=== PATIENT | female | born 1945 | race Caucasian/White ===

== ENCOUNTER 2019-08-25 09:11 | Inpatient (IN) ==
[2019-08-25 09:32] LABS: Basophils % 0.4 % (0.0-0.8); Eosinophils # 0.1 10*3/uL (0.0-0.87); Hematocrit 39.2 VOL% (35.7-47.0); Immature Granulocytes % 0.6 %; Immature Granulocytes Absolute 0.03 #; Lymphocytes # 1.6 10*3/uL (1.4-4.0); Lymphocytes % 31.8 % (21.3-54.2); Mean Corpuscular HGB Conc 33.2 GM/DL (32-36); Mean Corpuscular Volume 90.5 FL (87-102); Mean Platelet Volume 9.9 FL (9.6-12.0); Neutrophils % 59.2 % (38.7-73.9); Platelet Count 230 T/CUMM (130-400); Red Blood Count 4.33 MC/CUMM (3.8-5.5); Red Cell Distribution Width 13.2 % (9.3-17.3); White Blood Count 4.9 T/CUMM (4-12)
[2019-08-25] MEDS ORDERED: NITROGLYCERIN SL 0.4 MG TABLET SL PRN (09:33)
[2019-08-25] MEDS ORDERED: ENOXAPARIN 100 MG/ML SYRINGE SUBCUT STA (09:33)
[2019-08-25] MEDS ORDERED: ASPIRIN 325 MG TABLET PO STA (09:33)
[2019-08-25 10:03] LABS: Albumin 3.9 G/DL (3.4-5.0); Bilirubin,Total 0.6 MG/DL (0.2-1.0); Calcium 8.9 MG/DL (8.5-10.1); Osmolality,Calculated 281.8 MOS/KG (273-304)
[2019-08-25] MEDS ORDERED: ZALEPLON 5 MG CAPSULE PO PRN (10:11)
[2019-08-25] MEDS ORDERED: MAGNESIUM SULF RIDER 2 GM in PREMIX 1 EACH IV PRN ×2 (10:11→16:16)
[2019-08-25] MEDS ORDERED: MAGNESIUM SULF RIDER 4 GM in PREMIX 1 EACH IV PRN (10:11)
[2019-08-25] MEDS ORDERED: DEXTROSE 50% 25 GM/50 ML VIAL IV PRN (10:11)
[2019-08-25] MEDS ORDERED: MORPHINE 4 MG/1 ML VIAL IV PRN (10:11)
[2019-08-25] MEDS ORDERED: GLUCAGON 1 MG VIAL IM PRN (10:11)
[2019-08-25] MEDS: INSULIN LISPRO 100 UNIT/ML SUBCUT SCH ×3 (11:51→21:28)
[2019-08-25] MEDS: SODIUM CHLORIDE 0.45% 1,000 ML IV SCH ×2 (14:25→22:12)
[2019-08-25 15:06] LABS: INR 1.1; PT Patient Result 11.8 SECS (9.8-11.9)
[2019-08-25] MEDS ORDERED: TICAGRELOR 90 MG TABLET PO ONE (16:15)
[2019-08-25] MEDS ORDERED: POTASSIUM CHLORIDE RIDER 10 MEQ in PREMIX 1 EACH IV PRN (16:16)
[2019-08-25] MEDS: GABAPENTIN 400 MG CAPSULE PO SCH ×2 (17:51→22:03)
[2019-08-25] MEDS: NITROGLYCERIN 2% OINT 1 INCH/GM PACK TOP SCH ×2 (17:53→19:24)
[2019-08-25] MEDS ORDERED: ATORVASTATIN 40 MG TABLET PO SCH (21:00)
[2019-08-25] MEDS: ATORVASTATIN 80 MG TABLET PO SCH (22:04)
[2019-08-25] MEDS: METOPROLOL TARTRATE 25 MG TABLET PO SCH (22:04)
[2019-08-25] MEDS: TICAGRELOR 90 MG TABLET PO SCH (22:05)
[2019-08-25] MEDS: ENOXAPARIN 80 MG/0.8 ML SYRINGE SUBCUT SCH (22:10)
[2019-08-25] MEDS: ONDANSETRON 4 MG/2 ML VIAL IV PRN (23:26)
[2019-08-26] MEDS: NITROGLYCERIN 2% OINT 1 INCH/GM PACK TOP SCH ×2 (00:19→07:11)
[2019-08-26] MEDS: SODIUM CHLORIDE 0.45% 1,000 ML IV SCH ×2 (04:18→16:07)
[2019-08-26 06:41] LABS: Basophils % 0.4 % (0.0-0.8); Eosinophils # 0.1 10*3/uL (0.0-0.87); Eosinophils % 1.1 % (0.00-10.9); Hematocrit 40.1 VOL% (35.7-47.0); Hemoglobin 13.2 GM/DL (12.0-16.0); Immature Granulocytes % 0.5 %; Immature Granulocytes Absolute 0.03 #; Lymphocytes # 1.4 10*3/uL (1.4-4.0); Mean Corpuscular HGB Conc 32.9 GM/DL (32-36); Mean Corpuscular Volume 91.1 FL (87-102); Monocytes % 9.2 % (1.7-12.7); Neutrophils % 63.8 % (38.7-73.9); Platelet Count 234 T/CUMM (130-400); Red Cell Distribution Width 13.1 % (9.3-17.3); White Blood Count 5.6 T/CUMM (4-12)
[2019-08-26 07:03] LABS: Osmolality,Calculated 275.7 MOS/KG (273-304); Osmolality,Calculated 278.5 MOS/KG (273-304)
[2019-08-26 07:07] LABS: Risk Ratio 4.92; VLDL CHOLESTEROL 66.4 MG/DL
[2019-08-26] MEDS: POTASSIUM CHLORIDE 20 MEQ TABLET PO PRN ×2 (07:19→08:23)
[2019-08-26] MEDS ORDERED: DIAZEPAM 5 MG TABLET PO ONE (08:00)
[2019-08-26] MEDS ORDERED: diphenhydrAMINE CAP 25 MG CAPSULE PO ONE (08:00)
[2019-08-26] MEDS: LOSARTAN 50 MG TABLET PO SCH (08:23)
[2019-08-26] MEDS: METOPROLOL TARTRATE 25 MG TABLET PO SCH ×2 (08:23→21:20)
[2019-08-26] MEDS ORDERED: LIDOCAINE 1% 20 ML VIAL ONE (08:23)
[2019-08-26] MEDS ORDERED: HEPARIN/NACL 0.9% 2 UNITS/ML 1,000 ML IV ONE (08:23)
[2019-08-26] MEDS ORDERED: MIDAZOLAM 2 MG/2 ML VIAL ONE (08:42)
[2019-08-26] MEDS ORDERED: NITROGLYCERIN DRIP 50 MG/250 ML BOTTLE IV ONE (08:42)
[2019-08-26] MEDS ORDERED: fentaNYL 100 MCG/2 ML VIAL ONE (08:42)
[2019-08-26] MEDS ORDERED: VERAPAMIL 5 MG/2 ML VIAL ONE (08:42)
[2019-08-26] MEDS ORDERED: ASPIRIN 325 MG TABLET ONE (08:47)
[2019-08-26] MEDS ORDERED: ENOXAPARIN 60 MG/0.6 ML SYRINGE ONE (08:57)
[2019-08-26] MEDS ORDERED: ASPIRIN 325 MG TABLET PO SCH (09:00)
[2019-08-26] MEDS ORDERED: CHLORTHALIDONE 25 MG TABLET PO SCH (09:00)
[2019-08-26] MEDS ORDERED: ATORVASTATIN 20 MG TABLET PO SCH (09:00)
[2019-08-26] MEDS: INSULIN LISPRO 100 UNIT/ML SUBCUT SCH ×4 (09:55→21:17)
[2019-08-26] MEDS: ENOXAPARIN 80 MG/0.8 ML SYRINGE SUBCUT SCH (09:57)
[2019-08-26] MEDS: DOCUSATE SODIUM 100 MG CAPSULE PO SCH (10:00)
[2019-08-26] MEDS: ASPIRIN EC 81 MG TABLET PO SCH (10:00)
[2019-08-26] MEDS: GABAPENTIN 400 MG CAPSULE PO SCH ×3 (10:01→21:20)
[2019-08-26] MEDS: TICAGRELOR 90 MG TABLET PO SCH (13:23)
[2019-08-26] MEDS: ATORVASTATIN 80 MG TABLET PO SCH (21:20)
[2019-08-27 03:44] LABS: Basophils % 0.4 % (0.0-0.8); Eosinophils # 0.1 10*3/uL (0.0-0.87); Eosinophils % 2.8 % (0.00-10.9); Hematocrit 36.6 VOL% (35.7-47.0); Hemoglobin 11.9 GM/DL (12.0-16.0); Immature Granulocytes % 0.4 %; Immature Granulocytes Absolute 0.02 #; Lymphocytes # 1.8 10*3/uL (1.4-4.0); Lymphocytes % 34.8 % (21.3-54.2); Mean Corpuscular HGB Conc 32.5 GM/DL (32-36); Mean Corpuscular Volume 92.7 FL (87-102); Mean Platelet Volume 10.4 FL (9.6-12.0); Monocytes % 9.1 % (1.7-12.7); Neutrophils % 52.5 % (38.7-73.9); Platelet Count 220 T/CUMM (130-400); Red Blood Count 3.95 MC/CUMM (3.8-5.5); Red Cell Distribution Width 13.4 % (9.3-17.3); White Blood Count 5.1 T/CUMM (4-12)
[2019-08-27 04:16] LABS: Calcium 8.2 MG/DL (8.5-10.1); Osmolality,Calculated 279.4 MOS/KG (273-304)
[2019-08-27] MEDS: POTASSIUM CHLORIDE 20 MEQ TABLET PO PRN ×2 (05:25→08:36)
[2019-08-27] MEDS: INSULIN LISPRO 100 UNIT/ML SUBCUT SCH ×4 (08:09→22:01)
[2019-08-27] MEDS: METOPROLOL TARTRATE 25 MG TABLET PO SCH ×2 (08:35→21:57)
[2019-08-27] MEDS: LOSARTAN 50 MG TABLET PO SCH (08:35)
[2019-08-27] MEDS: GABAPENTIN 400 MG CAPSULE PO SCH ×3 (08:35→21:57)
[2019-08-27] MEDS: DOCUSATE SODIUM 100 MG CAPSULE PO SCH (08:35)
[2019-08-27] MEDS: ISOSORBIDE MONONITRATE 30 MG TABLET PO SCH (08:35)
[2019-08-27] MEDS: ASPIRIN EC 81 MG TABLET PO SCH (08:35)
[2019-08-27] MEDS: ENOXAPARIN 80 MG/0.8 ML SYRINGE SUBCUT SCH ×2 (08:36→22:00)
[2019-08-27] MEDS ORDERED: POTASSIUM CHLORIDE 20 MEQ TABLET PO ONE (09:00)
[2019-08-27] MEDS: MAGNESIUM OXIDE 400 MG TABLET PO SCH ×2 (09:43→21:57)
[2019-08-27] MEDS: ATORVASTATIN 80 MG TABLET PO SCH (21:57)
[2019-08-28] MEDS: ONDANSETRON 4 MG/2 ML VIAL IV PRN (01:52)
[2019-08-28 05:44] LABS: Basophils % 0.4 % (0.0-0.8); Eosinophils # 0.1 10*3/uL (0.0-0.87); Eosinophils % 1.9 % (0.00-10.9); Hematocrit 36.3 VOL% (35.7-47.0); Immature Granulocytes % 0.6 %; Immature Granulocytes Absolute 0.04 #; Lymphocytes # 1.9 10*3/uL (1.4-4.0); Lymphocytes % 28.3 % (21.3-54.2); Mean Corpuscular HGB Conc 33.1 GM/DL (32-36); Mean Corpuscular Volume 91.4 FL (87-102); Mean Platelet Volume 10.7 FL (9.6-12.0); Monocytes % 9.5 % (1.7-12.7); Neutrophils % 59.3 % (38.7-73.9); Platelet Count 204 T/CUMM (130-400); Red Blood Count 3.97 MC/CUMM (3.8-5.5); Red Cell Distribution Width 13.2 % (9.3-17.3); White Blood Count 6.8 T/CUMM (4-12)
[2019-08-28 06:01] LABS: Calcium 8.6 MG/DL (8.5-10.1); Osmolality,Calculated 284.3 MOS/KG (273-304)
[2019-08-28] MEDS ORDERED: ACETAMINOPHEN 500 MG TABLET PO PRN (06:17)
[2019-08-28] MEDS: INSULIN LISPRO 100 UNIT/ML SUBCUT SCH ×4 (08:43→21:36)
[2019-08-28] MEDS: MAGNESIUM OXIDE 400 MG TABLET PO SCH ×2 (10:05→21:34)
[2019-08-28] MEDS: GABAPENTIN 400 MG CAPSULE PO SCH ×3 (10:06→21:35)
[2019-08-28] MEDS: ISOSORBIDE MONONITRATE 30 MG TABLET PO SCH (10:06)
[2019-08-28] MEDS: METOPROLOL TARTRATE 25 MG TABLET PO SCH ×2 (10:06→21:34)
[2019-08-28] MEDS: DOCUSATE SODIUM 100 MG CAPSULE PO SCH (10:06)
[2019-08-28] MEDS: LOSARTAN 50 MG TABLET PO SCH (10:06)
[2019-08-28] MEDS: ASPIRIN EC 81 MG TABLET PO SCH (10:07)
[2019-08-28] MEDS ORDERED: GLUCAGON 1 MG VIAL IM PRN (13:29)
[2019-08-28] MEDS ORDERED: DEXTROSE 10% 250 ML BAG IV PRN (13:29)
[2019-08-28] MEDS: ATORVASTATIN 80 MG TABLET PO SCH (21:34)
[2019-08-29 03:05] LABS: Basophils % 0.5 % (0.0-0.8); Eosinophils # 0.1 10*3/uL (0.0-0.87); Eosinophils % 1.9 % (0.00-10.9); Hematocrit 34.6 VOL% (35.7-47.0); Hemoglobin 11.6 GM/DL (12.0-16.0); Immature Granulocytes % 0.6 %; Immature Granulocytes Absolute 0.04 #; Lymphocytes # 2.1 10*3/uL (1.4-4.0); Lymphocytes % 33.8 % (21.3-54.2); Mean Corpuscular HGB Conc 33.5 GM/DL (32-36); Mean Corpuscular Volume 90.1 FL (87-102); Mean Platelet Volume 10.4 FL (9.6-12.0); Monocytes % 9.2 % (1.7-12.7); Platelet Count 205 T/CUMM (130-400); Red Blood Count 3.84 MC/CUMM (3.8-5.5); Red Cell Distribution Width 13.4 % (9.3-17.3); White Blood Count 6.3 T/CUMM (4-12)
[2019-08-29 03:22] LABS: Albumin 3.2 G/DL (3.4-5.0); Bilirubin,Total 0.8 MG/DL (0.2-1.0); Calcium 8.6 MG/DL (8.5-10.1); Osmolality,Calculated 274.8 MOS/KG (273-304); Total Protein 6.3 G/DL (6.4-8.3)
[2019-08-29] MEDS: MAGNESIUM OXIDE 400 MG TABLET PO SCH ×2 (09:29→21:41)
[2019-08-29] MEDS: POTASSIUM CHLORIDE 20 MEQ TABLET PO PRN ×2 (09:29→14:16)
[2019-08-29] MEDS: DOCUSATE SODIUM 100 MG CAPSULE PO SCH (09:30)
[2019-08-29] MEDS: ISOSORBIDE MONONITRATE 30 MG TABLET PO SCH (09:30)
[2019-08-29] MEDS: CHLORHEXIDINE 0.12% ORAL RINSE 60 ML BOTTLE SWISH/SPIT SCH ×2 (09:30→21:42)
[2019-08-29] MEDS: GABAPENTIN 400 MG CAPSULE PO SCH ×3 (09:30→21:41)
[2019-08-29] MEDS: METOPROLOL TARTRATE 25 MG TABLET PO SCH ×2 (09:30→21:41)
[2019-08-29] MEDS: LOSARTAN 50 MG TABLET PO SCH (09:30)
[2019-08-29] MEDS: ASPIRIN EC 81 MG TABLET PO SCH (09:30)
[2019-08-29] MEDS: INSULIN LISPRO 100 UNIT/ML SUBCUT SCH ×4 (10:17→21:41)
[2019-08-29 12:24] LABS: ABG Base Excess 3.4 MMOL/L (-2.5-2.5); ABG HCO3 27.4 MMOL/L (20-26); ABG Oxygen Saturation 96.2 % (95-100); ABG PCO2 41.2 MM HG (35-48); ABG PH 7.438 (7.35-7.45); ABG PO2 80.3 MM HG (80-95); ABG TCO2 24.4 MMOL/L (23-27)
[2019-08-29] MEDS: CHLORHEXIDINE 4% SOLN 118 ML BOTTLE TOP SCH ×2 (14:16→21:41)
[2019-08-29] MEDS: ATORVASTATIN 80 MG TABLET PO SCH (21:41)
[2019-08-30] MEDS: CHLORHEXIDINE 4% SOLN 118 ML BOTTLE TOP SCH ×2 (04:05→10:20)
[2019-08-30] MEDS ORDERED: PAPAVERINE 60 MG/2 ML VIAL ONE (04:19)
[2019-08-30] MEDS ORDERED: VANCOMYCIN 500 MG VIAL ONE (04:20)
[2019-08-30] MEDS ORDERED: VANCOMYCIN 1,000 MG VIAL ONE (04:20)
[2019-08-30] MEDS ORDERED: CEFUROXIME INJ 1,500 MG in SYRINGE 1 EACH IV ONE (05:00)
[2019-08-30] MEDS ORDERED: SODIUM CHLORIDE 0.9% 1,000 ML IV SCH (05:00)
[2019-08-30] MEDS ORDERED: DIAZEPAM 5 MG TABLET PO ONE (05:00)
[2019-08-30] MEDS ORDERED: FAMOTIDINE 20 MG TABLET PO ONE (05:00)
[2019-08-30] MEDS ORDERED: VECURONIUM 10 MG VIAL IV ONE (05:53)
[2019-08-30] MEDS ORDERED: MIDAZOLAM 10 MG/2 ML VIAL ONE (05:53)
[2019-08-30] MEDS ORDERED: CALCIUM CHLORIDE 1,000 MG/10 ML VIAL IV ONE (05:53)
[2019-08-30] MEDS ORDERED: SUFentanil 250 MCG/5 ML AMP ONE (05:53)
[2019-08-30] MEDS ORDERED: MINERAL OIL/PETROLATUM OPH OINT 3.5 GM TUBE ONE (05:53)
[2019-08-30] MEDS ORDERED: LIDOCAINE 2% 5 ML VIAL ONE ×2 (05:53→10:27)
[2019-08-30] MEDS ORDERED: AMINOCAPROIC ACID 5,000 MG/20 ML VIAL ONE (05:54)
[2019-08-30] MEDS ORDERED: POTASSIUM CHLORIDE RIDER 100 ML IV ONE (07:12)
[2019-08-30 07:41] LABS: ABG Base Excess 0.8 MMOL/L (-2.5-2.5); ABG HCO3 25.2 MMOL/L (20-26); ABG Oxygen Saturation 99.8 % (95-100); ABG PCO2 37.5 MM HG (35-48); ABG TCO2 22.2 MMOL/L (23-27); Glucose Heart Surgery 154 MG/DL (74-106); Hematocrit Heart Surgery 34.8 PERCENT (37-47); Hemoglobin Heart Surgery 11.3 G/DL (12.0-16.0); Ionized Calcium Arterial 1.13 MMOL/L (1.21-1.46); PCO2 Patient Temp Arterial 37.5 MMHG; Patient Temperature 37 CELCIUS; Potassium Heart/CVR 3.7 MMOL/L (3.5-5.1); Sodium Heart/CVR 140 MMOL/L (135-145)
[2019-08-30] MEDS ORDERED: diphenhydrAMINE 50 MG/1 ML VIAL ONE (08:59)
[2019-08-30] MEDS ORDERED: FAMOTIDINE 20 MG/2 ML VIAL IV ONE (08:59)
[2019-08-30 09:03] LABS: Hematocrit Heart Surgery 22.4 PERCENT (37-47); Hemoglobin Heart Surgery 7.2 G/DL (12.0-16.0); PCO2 Patient Temp Venous 30.8 MM HG; PH Patient Temp Venous 7.511; PO2 Patient Temp Venous 42.1 MM HG; Potassium Heart/CVR 4.4 MMOL/L (3.5-5.1); VBG HCO3 26.1 MEQ/L (24-28); VBG Oxygen Saturation 88.8 %; VBG PCO2 35.6 MMHG (41-51); VBG PH 7.466; VBG PO2 51.6 MMHG (17-40)
[2019-08-30 09:32] LABS: Hematocrit Heart Surgery 25.6 PERCENT (37-47); Hemoglobin Heart Surgery 8.2 G/DL (12.0-16.0); PCO2 Patient Temp Venous 34.8 MM HG; PH Patient Temp Venous 7.477; PO2 Patient Temp Venous 39.1 MM HG; Potassium Heart/CVR 4.4 MMOL/L (3.5-5.1); VBG Base Excess 2.5 MEQ/L (0-4); VBG HCO3 26.4 MEQ/L (24-28); VBG Oxygen Saturation 83.6 %; VBG PCO2 40.2 MMHG (41-51); VBG PH 7.433; VBG PO2 48.1 MMHG (17-40)
[2019-08-30 10:05] LABS: Hematocrit Heart Surgery 27.4 PERCENT (37-47); Hemoglobin Heart Surgery 8.8 G/DL (12.0-16.0); PCO2 Patient Temp Venous 39.4 MM HG; PH Patient Temp Venous 7.451; PO2 Patient Temp Venous 43.8 MM HG; Potassium Heart/CVR 4.2 MMOL/L (3.5-5.1); VBG Base Excess 3.3 MEQ/L (0-4); VBG HCO3 27.1 MEQ/L (24-28); VBG Oxygen Saturation 80.5 %; VBG PCO2 39.4 MMHG (41-51); VBG PH 7.451; VBG PO2 43.8 MMHG (17-40)
[2019-08-30] MEDS ORDERED: NITROPRUSSIDE 50 MG/2 ML VIAL ONE (10:12)
[2019-08-30] MEDS: ASPIRIN EC 81 MG TABLET PO SCH (10:19)
[2019-08-30] MEDS: INSULIN LISPRO 100 UNIT/ML SUBCUT SCH (10:19)
[2019-08-30] MEDS: DOCUSATE SODIUM 100 MG CAPSULE PO SCH (10:19)
[2019-08-30] MEDS: LOSARTAN 50 MG TABLET PO SCH (10:20)
[2019-08-30] MEDS: METOPROLOL TARTRATE 25 MG TABLET PO SCH (10:20)
[2019-08-30] MEDS: ISOSORBIDE MONONITRATE 30 MG TABLET PO SCH (10:20)
[2019-08-30] MEDS: MAGNESIUM OXIDE 400 MG TABLET PO SCH (10:21)
[2019-08-30] MEDS: GABAPENTIN 400 MG CAPSULE PO SCH (10:21)
[2019-08-30] MEDS: CHLORHEXIDINE 0.12% ORAL RINSE 60 ML BOTTLE SWISH/SPIT SCH ×2 (10:21→21:45)
[2019-08-30] MEDS ORDERED: MANNITOL 100 GM/500 ML BAG IV ONE (10:27)
[2019-08-30] MEDS ORDERED: ALBUMIN 25% 25 GM/100 ML VIAL IV ONE (10:28)
[2019-08-30] MEDS ORDERED: SODIUM BICARBONATE 50 MEQ/50 ML VIAL IV ONE (10:28)
[2019-08-30] MEDS ORDERED: MAGNESIUM SULFATE 5 GM/10 ML VIAL IV ONE (10:28)
[2019-08-30] MEDS ORDERED: methylPREDNISolone SOD SUC 1,000 MG/8 ML VIAL ONE (10:28)
[2019-08-30] MEDS ORDERED: PROTAMINE SULFATE 250 MG/25 ML VIAL IV ONE (10:28)
[2019-08-30] MEDS ORDERED: DEXTROSE 5% KCL 20 MEQ 20 MEQ/1,000 ML BAG IV ONE (10:28)
[2019-08-30] MEDS ORDERED: HEPARIN 10,000 UNIT/10 ML VIAL ONE (10:28)
[2019-08-30] MEDS ORDERED: FUROSEMIDE 20 MG/2 ML VIAL ONE (10:28)
[2019-08-30 10:33] LABS: ABG Base Excess 2.4 MMOL/L (-2.5-2.5); ABG HCO3 26.6 MMOL/L (20-26); ABG PCO2 34.4 MM HG (35-48); ABG PH 7.483 (7.35-7.45); Glucose Heart Surgery 279 MG/DL (74-106); Hematocrit Heart Surgery 24.6 PERCENT (37-47); Hemoglobin Heart Surgery 7.9 G/DL (12.0-16.0); Ionized Calcium Arterial 1.19 MMOL/L (1.21-1.46); PCO2 Patient Temp Arterial 34.4 MMHG; PH Patient Temp Arterial 7.483; Patient Temperature 37 CELCIUS; Potassium Heart/CVR 3.3 MMOL/L (3.5-5.1); Sodium Heart/CVR 137 MMOL/L (135-145)
[2019-08-30] MEDS ORDERED: HEPARIN/NACL 0.9% 2 UNITS/ML 500 ML IV ONE (11:06)
[2019-08-30] MEDS ORDERED: PHENYLEPHRINE DRIP 20 MG/250 ML PREMIX IV ONE (11:06)
[2019-08-30] MEDS ORDERED: SEVOFLURANE 1 UNIT/15 MINUTE INH ONE (11:06)
[2019-08-30] MEDS ORDERED: LACTATED RINGERS 1,000 ML IV ONE (11:07)
[2019-08-30] MEDS ORDERED: SODIUM CHLORIDE 0.9% 250 ML IV ONE (11:07)
[2019-08-30] MEDS ORDERED: NITROGLYCERIN DRIP 50 MG/250 ML BOTTLE IV ONE (11:07)
[2019-08-30] MEDS ORDERED: SODIUM CHLORIDE 0.9% 100 ML IV ONE (11:07)
[2019-08-30] MEDS ORDERED: SODIUM CHLORIDE 0.9% 1,000 ML IV ONE (11:07)
[2019-08-30] MEDS ORDERED: CHLORHEXIDINE 4% SOLN 118 ML BOTTLE TOP PRN (11:17)
[2019-08-30] MEDS ORDERED: NITROPRUSSIDE 100 MG in DEXTROSE 5% 250 ML IV PRN (11:17)
[2019-08-30] MEDS ORDERED: CALCIUM CHLORIDE 1,000 MG/10 ML SYRINGE IV PRN (11:17)
[2019-08-30] MEDS ORDERED: ONDANSETRON 4 MG/2 ML VIAL IV PRN (11:17)
[2019-08-30] MEDS ORDERED: ACETAMINOPHEN 650 MG SUPP RECTAL PRN (11:17)
[2019-08-30] MEDS ORDERED: INSULIN REGULAR 100 UNIT/ML IV ONE (11:17)
[2019-08-30] MEDS ORDERED: MORPHINE 10 MG/1 ML VIAL IV PRN (11:17)
[2019-08-30] MEDS ORDERED: PHENYLEPHRINE DRIP 40 MG/250 ML PREMIX IV PRN (11:17)
[2019-08-30] MEDS ORDERED: POTASSIUM CHLORIDE RIDER 10 MEQ in PREMIX 1 EACH IV PRN (11:17)
[2019-08-30] MEDS ORDERED: LACTATED RINGERS 250 ML IV PRN (11:17)
[2019-08-30] MEDS ORDERED: MIDAZOLAM 2 MG/2 ML VIAL IV PRN (11:17)
[2019-08-30] MEDS ORDERED: MAGNESIUM SULF RIDER 2 GM in PREMIX 1 EACH IV PRN (11:17)
[2019-08-30] MEDS ORDERED: SODIUM CHLORIDE 0.45% 1,000 ML IV SCH ×2 (11:17)
[2019-08-30] MEDS ORDERED: VECURONIUM 10 MG VIAL IV PRN ×2 (11:17)
[2019-08-30] MEDS ORDERED: MAGNESIUM SULF RIDER 4 GM in PREMIX 1 EACH IV PRN (11:17)
[2019-08-30] MEDS ORDERED: INSULIN REGULAR 100 UNIT/ML IV PRN (11:17)
[2019-08-30] MEDS ORDERED: ALBUMIN 5% 12.5 GM in PREMIX 1 EACH IV PRN (11:17)
[2019-08-30] MEDS ORDERED: DEXTROSE 10% 250 ML BAG IV PRN ×2 (11:17)
[2019-08-30] MEDS ORDERED: MIDAZOLAM 10 MG/2 ML VIAL IV PRN (11:17)
[2019-08-30 11:20] LABS: ABG Base Excess 3.9 MMOL/L (-2.5-2.5); ABG HCO3 27.9 MMOL/L (20-26); ABG Oxygen Saturation 99.6 % (95-100); ABG PCO2 33.7 MM HG (35-48); ABG PH 7.509 (7.35-7.45); ABG TCO2 24.8 MMOL/L (23-27); Glucose Heart Surgery 263 MG/DL (74-106); Hemoglobin Heart Surgery 8.4 G/DL (12.0-16.0); Potassium Heart/CVR 3.4 MMOL/L (3.5-5.1)
[2019-08-30 11:27] LABS: Basophils % 0.3 % (0.0-0.8); Eosinophils # 0.1 10*3/uL (0.0-0.87); Eosinophils % 0.8 % (0.00-10.9); Hematocrit 24.7 VOL% (35.7-47.0); Hemoglobin 8.3 GM/DL (12.0-16.0); Immature Granulocytes % 0.7 %; Immature Granulocytes Absolute 0.04 #; Lymphocytes % 15.7 % (21.3-54.2); Mean Corpuscular HGB Conc 33.6 GM/DL (32-36); Mean Corpuscular Volume 90.1 FL (87-102); Mean Platelet Volume 10.2 FL (9.6-12.0); Monocytes % 4.6 % (1.7-12.7); Neutrophils % 77.9 % (38.7-73.9); Platelet Count 216 T/CUMM (130-400); Red Blood Count 2.74 MC/CUMM (3.8-5.5); Red Cell Distribution Width 13.2 % (9.3-17.3); White Blood Count 6.1 T/CUMM (4-12)
[2019-08-30] MEDS ORDERED: PROTAMINE SULFATE 50 MG/5 ML VIAL IV ONE (11:30)
[2019-08-30 11:38] LABS: INR 1.2; PT Patient Result 12.7 SECS (9.8-11.9); Partial Thromboplastin Time 26.7 SECS (23.9-33.8)
[2019-08-30] MEDS: POTASSIUM CHLORIDE RIDER 20 MEQ in PREMIX 1 EACH IV PRN ×9 (11:48→23:30)
[2019-08-30 11:53] LABS: Albumin 3.6 G/DL (3.4-5.0); Bilirubin,Total 1.2 MG/DL (0.2-1.0); Calcium 8.8 MG/DL (8.5-10.1); Osmolality,Calculated 285.5 MOS/KG (273-304); Total Protein 6.1 G/DL (6.4-8.3)
[2019-08-30 11:56] LABS: CKMB % 4.9 %
[2019-08-30 11:58] LABS: Troponin I 2.53 NG/ML (0.00-0.045)
[2019-08-30 12:23] LABS: ABG Base Excess 3.9 MMOL/L (-2.5-2.5); ABG HCO3 27.9 MMOL/L (20-26); ABG Oxygen Saturation 98.9 % (95-100); ABG PH 7.526 (7.35-7.45); ABG TCO2 24.2 MMOL/L (23-27); Glucose Heart Surgery 250 MG/DL (74-106); Hematocrit Heart Surgery 28.2 PERCENT (37-47); Hemoglobin Heart Surgery 9.1 G/DL (12.0-16.0); Potassium Heart/CVR 3.3 MMOL/L (3.5-5.1)
[2019-08-30] MEDS: INSULIN REGULAR DRIP 100 ML IV SCH ×2 (13:07→22:03)
[2019-08-30 14:12] LABS: ABG Base Excess 0.3 MMOL/L (-2.5-2.5); ABG HCO3 23.5 MMOL/L (20-26); ABG Oxygen Saturation 97.4 % (95-100); ABG PCO2 33.2 MM HG (35-48); ABG PH 7.468 (7.35-7.45); ABG PO2 109.5 MM HG (80-95); ABG TCO2 24.5 MMOL/L (23-27); Glucose Heart Surgery 235 MG/DL (74-106); Hemoglobin Heart Surgery 11.5 G/DL (12.0-16.0); Potassium Heart/CVR 3.2 MMOL/L (3.5-5.1)
[2019-08-30 16:06] LABS: ABG Base Excess -3.6 MMOL/L (-2.5-2.5); ABG HCO3 21.4 MMOL/L (20-26); ABG Oxygen Saturation 98.8 % (95-100); ABG PCO2 37.1 MM HG (35-48); ABG PH 7.366 (7.35-7.45); ABG TCO2 19.3 MMOL/L (23-27); Glucose Heart Surgery 201 MG/DL (74-106); Hemoglobin Heart Surgery 10.4 G/DL (12.0-16.0); Potassium Heart/CVR 3.5 MMOL/L (3.5-5.1)
[2019-08-30] MEDS: MORPHINE 4 MG/1 ML VIAL IV PRN ×2 (16:10→22:40)
[2019-08-30] MEDS: KETOROLAC 15 MG/1 ML VIAL IV SCH ×2 (17:34→23:32)
[2019-08-30 18:14] LABS: ABG Base Excess -4.7 MMOL/L (-2.5-2.5); ABG HCO3 20.5 MMOL/L (20-26); ABG Oxygen Saturation 98.9 % (95-100); ABG PCO2 35.4 MM HG (35-48); ABG PH 7.363 (7.35-7.45); ABG TCO2 18.3 MMOL/L (23-27); Glucose Heart Surgery 191 MG/DL (74-106); Hematocrit Heart Surgery 31.4 PERCENT (37-47); Hemoglobin Heart Surgery 10.2 G/DL (12.0-16.0); Potassium Heart/CVR 3.9 MMOL/L (3.5-5.1)
[2019-08-30] MEDS: CEFUROXIME INJ 1,500 MG in SYRINGE 1 EACH IV SCH (18:32)
[2019-08-30 19:40] LABS: ABG Base Excess -1.9 MMOL/L (-2.5-2.5); ABG HCO3 22.8 MMOL/L (20-26); ABG Oxygen Saturation 98.8 % (95-100); ABG PCO2 33.7 MM HG (35-48); ABG PH 7.422 (7.35-7.45); ABG TCO2 19.8 MMOL/L (23-27); Glucose Heart Surgery 181 MG/DL (74-106); Hematocrit Heart Surgery 32.1 PERCENT (37-47); Hemoglobin Heart Surgery 10.4 G/DL (12.0-16.0); Potassium Heart/CVR 4.4 MMOL/L (3.5-5.1)
[2019-08-30 20:02] LABS: CKMB % 7.4 %
[2019-08-30 20:05] LABS: Troponin I 6.41 NG/ML (0.00-0.045)
[2019-08-30 20:24] LABS: ABG Base Excess -1.3 MMOL/L (-2.5-2.5); ABG HCO3 23.4 MMOL/L (20-26); ABG Oxygen Saturation 98.9 % (95-100); ABG PCO2 32.9 MM HG (35-48); ABG PH 7.439 (7.35-7.45); ABG TCO2 20.1 MMOL/L (23-27); Glucose Heart Surgery 166 MG/DL (74-106); Hematocrit Heart Surgery 32.4 PERCENT (37-47); Hemoglobin Heart Surgery 10.5 G/DL (12.0-16.0)
[2019-08-30 21:28] LABS: ABG Base Excess -0.7 MMOL/L (-2.5-2.5); ABG HCO3 23.9 MMOL/L (20-26); ABG PCO2 31.8 MM HG (35-48); ABG PH 7.459 (7.35-7.45); ABG TCO2 20.2 MMOL/L (23-27); Glucose Heart Surgery 152 MG/DL (74-106); Hematocrit Heart Surgery 32.5 PERCENT (37-47); Hemoglobin Heart Surgery 10.5 G/DL (12.0-16.0); Potassium Heart/CVR 4.5 MMOL/L (3.5-5.1)
[2019-08-30] MEDS ORDERED: FUROSEMIDE 40 MG/4 ML VIAL IV ONE (21:46)
[2019-08-30 23:21] LABS: ABG Base Excess 2.4 MMOL/L (-2.5-2.5); ABG HCO3 26.5 MMOL/L (20-26); ABG PCO2 37.7 MM HG (35-48); ABG PH 7.451 (7.35-7.45); ABG PO2 92.8 MM HG (80-95); ABG TCO2 23.6 MMOL/L (23-27); Glucose Heart Surgery 127 MG/DL (74-106); Hematocrit Heart Surgery 33.5 PERCENT (37-47); Hemoglobin Heart Surgery 10.8 G/DL (12.0-16.0); Potassium Heart/CVR 3.9 MMOL/L (3.5-5.1)
[2019-08-31] MEDS: POTASSIUM CHLORIDE RIDER 20 MEQ in PREMIX 1 EACH IV PRN ×2 (00:29→05:40)
[2019-08-31 04:40] LABS: ABG HCO3 25.7 MMOL/L (20-26); ABG Oxygen Saturation 97.5 % (95-100); ABG PCO2 36.7 MM HG (35-48); ABG PH 7.463 (7.35-7.45); ABG PO2 103.6 MM HG (80-95); ABG TCO2 26.8 MMOL/L (23-27); Glucose Heart Surgery 127 MG/DL (74-106); Potassium Heart/CVR 4.4 MMOL/L (3.5-5.1)
[2019-08-31 04:45] LABS: Basophils % 0.1 % (0.0-0.8); Hematocrit 30.2 VOL% (35.7-47.0); Hemoglobin 10.3 GM/DL (12.0-16.0); Immature Granulocytes % 0.5 %; Immature Granulocytes Absolute 0.06 #; Lymphocytes # 0.6 10*3/uL (1.4-4.0); Lymphocytes % 5.2 % (21.3-54.2); Mean Corpuscular HGB Conc 34.1 GM/DL (32-36); Mean Corpuscular Volume 89.9 FL (87-102); Mean Platelet Volume 10.8 FL (9.6-12.0); Monocytes % 5.2 % (1.7-12.7); Platelet Count 206 T/CUMM (130-400); Red Blood Count 3.36 MC/CUMM (3.8-5.5); Red Cell Distribution Width 13.6 % (9.3-17.3); White Blood Count 12.2 T/CUMM (4-12)
[2019-08-31 05:13] LABS: Albumin 3.6 G/DL (3.4-5.0); Bilirubin,Direct 0.15 MG/DL (0.0-0.20); Bilirubin,Total 0.5 MG/DL (0.2-1.0); Calcium 8.7 MG/DL (8.5-10.1); Osmolality,Calculated 276.8 MOS/KG (273-304); Total Protein 6.6 G/DL (6.4-8.3)
[2019-08-31 05:39] LABS: CKMB % 8.8 %
[2019-08-31 05:41] LABS: Troponin I 23.6 NG/ML (0.00-0.045)
[2019-08-31] MEDS: KETOROLAC 15 MG/1 ML VIAL IV SCH (05:42)
[2019-08-31] MEDS: CEFUROXIME INJ 1,500 MG in SYRINGE 1 EACH IV SCH ×2 (05:58→17:58)
[2019-08-31] MEDS ORDERED: FUROSEMIDE 40 MG/4 ML VIAL IV ONE (06:51)
[2019-08-31] MEDS ORDERED: INSULIN REGULAR 100 UNIT/ML SUBCUT SCH ×2 (08:00→10:00)
[2019-08-31] MEDS: MORPHINE 4 MG/1 ML VIAL IV PRN (08:24)
[2019-08-31] MEDS: ASPIRIN EC 325 MG TABLET PO SCH (08:40)
[2019-08-31] MEDS: CHLORHEXIDINE 0.12% ORAL RINSE 60 ML BOTTLE SWISH/SPIT SCH ×2 (08:40→21:40)
[2019-08-31] MEDS ORDERED: PANTOPRAZOLE 40 MG VIAL IV ONE (09:25)
[2019-08-31] MEDS ORDERED: GLUCAGON 1 MG VIAL IM PRN (09:38)
[2019-08-31] MEDS ORDERED: ALUMINUM/MAGNES/SIMETH MAX STR 30 ML UDCUP PO PRN (09:38)
[2019-08-31] MEDS ORDERED: oxyCODONE/ACETAMINOPHEN 5-325 MG TABLET PO PRN (09:38)
[2019-08-31] MEDS ORDERED: SODIUM CHLOR 0.45% KCL 20 MEQ 20 MEQ/1,000 ML BAG IV SCH (09:38)
[2019-08-31] MEDS ORDERED: DEXTROSE 10% 250 ML BAG IV PRN (09:38)
[2019-08-31] MEDS ORDERED: MAGNESIUM SULF RIDER 4 GM in PREMIX 1 EACH IV PRN (09:38)
[2019-08-31] MEDS ORDERED: MAGNESIUM HYDROXIDE SUSP 30 ML UDCUP PO PRN (09:38)
[2019-08-31] MEDS ORDERED: MAGNESIUM SULF RIDER 2 GM in PREMIX 1 EACH IV PRN (09:38)
[2019-08-31 12:12] LABS: CKMB % 6.8 %
[2019-08-31 12:13] LABS: Troponin I 22.9 NG/ML (0.00-0.045)
[2019-08-31] MEDS: INSULIN REGULAR 100 UNIT/ML SUBCUT SCH ×3 (12:21→21:40)
[2019-08-31] MEDS: ONDANSETRON 4 MG/2 ML VIAL IV PRN (18:09)
[2019-08-31] MEDS: KETOROLAC 15 MG/1 ML VIAL IV PRN (18:12)
[2019-09-01] MEDS: INSULIN REGULAR 100 UNIT/ML SUBCUT SCH ×6 (00:40→22:01)
[2019-09-01 04:33] LABS: Basophils % 0.1 % (0.0-0.8); Hematocrit 31.4 VOL% (35.7-47.0); Hemoglobin 10.2 GM/DL (12.0-16.0); Immature Granulocytes % 0.8 %; Immature Granulocytes Absolute 0.11 #; Lymphocytes # 1.1 10*3/uL (1.4-4.0); Lymphocytes % 7.5 % (21.3-54.2); Mean Corpuscular HGB Conc 32.5 GM/DL (32-36); Mean Corpuscular Volume 93.5 FL (87-102); Mean Platelet Volume 10.9 FL (9.6-12.0); Monocytes % 7.7 % (1.7-12.7); Neutrophils % 83.9 % (38.7-73.9); Platelet Count 222 T/CUMM (130-400); Red Blood Count 3.36 MC/CUMM (3.8-5.5); Red Cell Distribution Width 13.8 % (9.3-17.3)
[2019-09-01 05:02] LABS: Albumin 3.1 G/DL (3.4-5.0); Bilirubin,Direct 0.12 MG/DL (0.0-0.20); Bilirubin,Total 1.6 MG/DL (0.2-1.0); Calcium 8.8 MG/DL (8.5-10.1); Osmolality,Calculated 285.5 MOS/KG (273-304); Total Protein 6.3 G/DL (6.4-8.3)
[2019-09-01 05:36] LABS: Albumin 3.3 G/DL (3.4-5.0); Bilirubin,Direct 0.15 MG/DL (0.0-0.20); Bilirubin,Indirect 0.5 MG/DL (0.0-1.0); Bilirubin,Total 0.6 MG/DL (0.2-1.0); CKMB % 3.5 %; Total Protein 5.8 G/DL (6.4-8.3)
[2019-09-01 05:37] LABS: Troponin I 14.6 NG/ML (0.00-0.045)
[2019-09-01] MEDS ORDERED: FUROSEMIDE 40 MG/4 ML VIAL IV ONE (06:00)
[2019-09-01] MEDS: KETOROLAC 15 MG/1 ML VIAL IV PRN ×2 (08:34→15:46)
[2019-09-01] MEDS: ASPIRIN EC 325 MG TABLET PO SCH (08:35)
[2019-09-01] MEDS: FERROUS SULFATE 325 MG TABLET PO SCH (08:35)
[2019-09-01] MEDS: PANTOPRAZOLE 40 MG TABLET PO SCH (08:35)
[2019-09-01] MEDS: DOCUSATE SODIUM 100 MG CAPSULE PO SCH (08:35)
[2019-09-01] MEDS: CHLORHEXIDINE 0.12% ORAL RINSE 60 ML BOTTLE SWISH/SPIT SCH ×2 (10:35→22:01)
[2019-09-01] MEDS: ATORVASTATIN 80 MG TABLET PO SCH (22:01)
[2019-09-02] MEDS ORDERED: ALBUTEROL/IPRATROPIUM 3 ML NEB RESP TX PRN (01:17)
[2019-09-02] MEDS ORDERED: FUROSEMIDE 40 MG/4 ML VIAL IV ONE (01:17)
[2019-09-02] MEDS: INSULIN REGULAR 100 UNIT/ML SUBCUT SCH ×6 (01:33→22:17)
[2019-09-02 07:04] LABS: Basophils % 0.3 % (0.0-0.8); Hematocrit 34.8 VOL% (35.7-47.0); Hemoglobin 11.5 GM/DL (12.0-16.0); Immature Granulocytes % 0.6 %; Immature Granulocytes Absolute 0.06 #; Lymphocytes # 1.3 10*3/uL (1.4-4.0); Lymphocytes % 12.8 % (21.3-54.2); Mean Corpuscular Volume 91.1 FL (87-102); Monocytes % 8.5 % (1.7-12.7); Neutrophils % 77.8 % (38.7-73.9); Platelet Count 248 T/CUMM (130-400); Red Blood Count 3.82 MC/CUMM (3.8-5.5); White Blood Count 9.8 T/CUMM (4-12)
[2019-09-02 07:20] LABS: Albumin 3.5 G/DL (3.4-5.0); Bilirubin,Direct 0.27 MG/DL (0.0-0.20); Bilirubin,Total 1.6 MG/DL (0.2-1.0); Calcium 8.8 MG/DL (8.5-10.1); Osmolality,Calculated 283.7 MOS/KG (273-304); Total Protein 7.2 G/DL (6.4-8.3)
[2019-09-02 07:22] LABS: Blood Urea Nitrogen 30 MG/DL (7-18); Calcium 8.6 MG/DL (8.5-10.1); Estimated Glom Filtration Rate 91 ML/MIN; Glucose 152 MG/DL (74-106); Osmolality,Calculated 285.5 MOS/KG (273-304)
[2019-09-02 07:29] LABS: Albumin 3.6 G/DL (3.4-5.0); Bilirubin,Direct 0.27 MG/DL (0.0-0.20); Bilirubin,Indirect 1.4 MG/DL (0.0-1.0); Bilirubin,Total 1.7 MG/DL (0.2-1.0); Total Protein 6.6 G/DL (6.4-8.3)
[2019-09-02] MEDS: ACETAMINOPHEN 325 MG TABLET PO PRN ×3 (09:57→22:16)
[2019-09-02] MEDS: DOCUSATE SODIUM 100 MG CAPSULE PO SCH (09:59)
[2019-09-02] MEDS: FERROUS SULFATE 325 MG TABLET PO SCH (09:59)
[2019-09-02] MEDS: METOPROLOL TARTRATE 25 MG TABLET PO SCH ×2 (09:59→22:15)
[2019-09-02] MEDS: ASPIRIN EC 325 MG TABLET PO SCH (09:59)
[2019-09-02] MEDS: PANTOPRAZOLE 40 MG TABLET PO SCH (09:59)
[2019-09-02] MEDS: ASCORBIC ACID 500 MG TABLET PO SCH ×2 (09:59→22:15)
[2019-09-02] MEDS: CHLORHEXIDINE 0.12% ORAL RINSE 60 ML BOTTLE SWISH/SPIT SCH ×2 (10:00→22:17)
[2019-09-02] MEDS: POTASSIUM CHLORIDE 20 MEQ TABLET PO PRN ×2 (10:22→15:06)
[2019-09-02] MEDS: ATORVASTATIN 80 MG TABLET PO SCH (22:15)
[2019-09-03] MEDS: INSULIN REGULAR 100 UNIT/ML SUBCUT SCH ×6 (05:19→22:06)
[2019-09-03 07:08] LABS: Calcium 8.7 MG/DL (8.5-10.1); Osmolality,Calculated 287.3 MOS/KG (273-304)
[2019-09-03] MEDS: ASPIRIN EC 325 MG TABLET PO SCH (08:36)
[2019-09-03] MEDS: ASCORBIC ACID 500 MG TABLET PO SCH ×2 (08:36→22:09)
[2019-09-03] MEDS: CHLORHEXIDINE 0.12% ORAL RINSE 60 ML BOTTLE SWISH/SPIT SCH ×2 (08:36→22:09)
[2019-09-03] MEDS: PANTOPRAZOLE 40 MG TABLET PO SCH (08:36)
[2019-09-03] MEDS: METOPROLOL TARTRATE 25 MG TABLET PO SCH ×2 (08:37→22:09)
[2019-09-03] MEDS: FERROUS SULFATE 325 MG TABLET PO SCH (08:37)
[2019-09-03] MEDS: DOCUSATE SODIUM 100 MG CAPSULE PO SCH (08:37)
[2019-09-03] MEDS: AMIODARONE 200 MG TABLET PO SCH ×2 (08:40→22:09)
[2019-09-03] MEDS: ACETAMINOPHEN 325 MG TABLET PO PRN (08:40)
[2019-09-03] MEDS: KETOROLAC 15 MG/1 ML VIAL IV PRN (11:08)
[2019-09-03] MEDS: metFORMIN 500 MG TABLET PO SCH (18:06)
[2019-09-03] MEDS: ATORVASTATIN 80 MG TABLET PO SCH (22:09)
[2019-09-04] MEDS: ZALEPLON 5 MG CAPSULE PO PRN ×2 (02:23→22:50)
[2019-09-04 06:21] LABS: Basophils % 0.3 % (0.0-0.8); Eosinophils # 0.1 10*3/uL (0.0-0.87); Eosinophils % 1.2 % (0.00-10.9); Hematocrit 33.6 VOL% (35.7-47.0); Hemoglobin 11.3 GM/DL (12.0-16.0); Immature Granulocytes Absolute 0.07 #; Lymphocytes # 1.7 10*3/uL (1.4-4.0); Lymphocytes % 24.9 % (21.3-54.2); Mean Corpuscular HGB Conc 33.6 GM/DL (32-36); Mean Corpuscular Volume 91.1 FL (87-102); Mean Platelet Volume 10.1 FL (9.6-12.0); Monocytes % 8.7 % (1.7-12.7); Neutrophils % 63.9 % (38.7-73.9); Platelet Count 286 T/CUMM (130-400); Red Blood Count 3.69 MC/CUMM (3.8-5.5); Red Cell Distribution Width 13.7 % (9.3-17.3); White Blood Count 6.8 T/CUMM (4-12)
[2019-09-04 06:49] LABS: Calcium 8.4 MG/DL (8.5-10.1); Osmolality,Calculated 283.5 MOS/KG (273-304)
[2019-09-04 06:55] LABS: Alanine Aminotransferase 26 U/L (13-56); Alkaline Phosphatase 72 U/L (45-117); Aspartate Amino Transferase 20 U/L (0-37); Bilirubin,Indirect 0.7 MG/DL (0.0-1.0); Blood Urea Nitrogen 22 MG/DL (7-18); Calcium 8.5 MG/DL (8.5-10.1); Estimated Glom Filtration Rate 90 ML/MIN; Glucose 144 MG/DL (74-106); Osmolality,Calculated 280.7 MOS/KG (273-304); Total Protein 6.5 G/DL (6.4-8.3)
[2019-09-04] MEDS: CHLORHEXIDINE 0.12% ORAL RINSE 60 ML BOTTLE SWISH/SPIT SCH ×2 (09:36→22:51)
[2019-09-04] MEDS: INSULIN REGULAR 100 UNIT/ML SUBCUT SCH ×4 (09:36→20:51)
[2019-09-04] MEDS: ASPIRIN EC 325 MG TABLET PO SCH (09:37)
[2019-09-04] MEDS: AMIODARONE 200 MG TABLET PO SCH ×2 (09:37→22:43)
[2019-09-04] MEDS: DOCUSATE SODIUM 100 MG CAPSULE PO SCH (09:37)
[2019-09-04] MEDS: ASCORBIC ACID 500 MG TABLET PO SCH ×2 (09:38→22:45)
[2019-09-04] MEDS: FERROUS SULFATE 325 MG TABLET PO SCH (09:40)
[2019-09-04] MEDS: METOPROLOL TARTRATE 25 MG TABLET PO SCH ×2 (09:40→22:44)
[2019-09-04] MEDS: PANTOPRAZOLE 40 MG TABLET PO SCH (09:41)
[2019-09-04] MEDS: ONDANSETRON 4 MG/2 ML VIAL IV PRN (10:28)
[2019-09-04] MEDS: metFORMIN 500 MG TABLET PO SCH ×2 (10:29→17:05)
[2019-09-04] MEDS: ATORVASTATIN 80 MG TABLET PO SCH (22:44)
[2019-09-05 06:00] LABS: Basophils % 0.3 % (0.0-0.8); Eosinophils # 0.2 10*3/uL (0.0-0.87); Hematocrit 33.3 VOL% (35.7-47.0); Hemoglobin 10.7 GM/DL (12.0-16.0); Immature Granulocytes % 1.5 %; Immature Granulocytes Absolute 0.11 #; Lymphocytes # 1.5 10*3/uL (1.4-4.0); Lymphocytes % 19.7 % (21.3-54.2); Mean Corpuscular HGB Conc 32.1 GM/DL (32-36); Mean Platelet Volume 9.7 FL (9.6-12.0); Monocytes % 8.5 % (1.7-12.7); Platelet Count 314 T/CUMM (130-400); Red Blood Count 3.62 MC/CUMM (3.8-5.5); Red Cell Distribution Width 13.5 % (9.3-17.3); White Blood Count 7.4 T/CUMM (4-12)
[2019-09-05 06:33] LABS: Calcium 8.6 MG/DL (8.5-10.1); Osmolality,Calculated 282.4 MOS/KG (273-304)
[2019-09-05 06:38] LABS: Alanine Aminotransferase 23 U/L (13-56); Albumin 2.9 G/DL (3.4-5.0); Alkaline Phosphatase 72 U/L (45-117); Aspartate Amino Transferase 18 U/L (0-37); Bilirubin,Indirect 0.6 MG/DL (0.0-1.0); Blood Urea Nitrogen 18 MG/DL (7-18); Calcium 8.3 MG/DL (8.5-10.1); Estimated Glom Filtration Rate 91 ML/MIN; Glucose 134 MG/DL (74-106); Osmolality,Calculated 278.7 MOS/KG (273-304); Total Protein 5.8 G/DL (6.4-8.3)
[2019-09-05 06:39] LABS: Troponin I 0.959 NG/ML (0.00-0.045)
[2019-09-05 07:39] VITALS: BP 119/65
[2019-09-05] MEDS: METOPROLOL TARTRATE 25 MG TABLET PO SCH (08:03)
[2019-09-05] MEDS: PANTOPRAZOLE 40 MG TABLET PO SCH (08:03)
[2019-09-05] MEDS: ASPIRIN EC 325 MG TABLET PO SCH (08:03)
[2019-09-05] MEDS: POTASSIUM CHLORIDE 20 MEQ TABLET PO PRN (08:03)
[2019-09-05] MEDS: FERROUS SULFATE 325 MG TABLET PO SCH (08:03)
[2019-09-05] MEDS: DOCUSATE SODIUM 100 MG CAPSULE PO SCH (08:03)
[2019-09-05] MEDS: ASCORBIC ACID 500 MG TABLET PO SCH (08:03)
[2019-09-05] MEDS: AMIODARONE 200 MG TABLET PO SCH (08:03)
[2019-09-05] MEDS: metFORMIN 500 MG TABLET PO SCH (08:03)
[2019-09-05] MEDS: INSULIN REGULAR 100 UNIT/ML SUBCUT SCH (08:04)
[2019-09-05] MEDS: CHLORHEXIDINE 0.12% ORAL RINSE 60 ML BOTTLE SWISH/SPIT SCH (08:16)
== END 2019-09-05 11:11 | disposition home health service (06) | DRG 234 ==
LOC: N.ED 09:11 → N.EDINP 09:11 → N.TELES 15:51 → N.CVR 08-30 10:48 → N.TELES 08-31 12:41
PROVIDERS: ADMIT Family Medicine

== ENCOUNTER 2022-01-01 03:25 | Inpatient (IN) ==
[2022-01-01] MEDS ORDERED: PIPERACILLIN/TAZOBACTAM 3,375 MG in SODIUM CHLORIDE 0.9% 100 ML IV STA (03:51)
[2022-01-01] MEDS ORDERED: cefTRIAXone 1,000 MG in SODIUM CHLORIDE 0.9% 100 ML IV STA (03:51)
[2022-01-01] MEDS ORDERED: ALBUTEROL/IPRATROPIUM 3 ML NEB RESP TX STA (03:51)
[2022-01-01 04:11] LABS: Basophils % 0.3 % (0.0-0.8); Eosinophils % 0.4 % (0.00-10.9); Hematocrit 40.3 VOL% (35.7-47.0); Hemoglobin 13.3 GM/DL (12.0-16.0); Immature Granulocytes % 1.1 %; Immature Granulocytes Absolute 0.12 #; Lymphocytes # 0.8 10*3/uL (1.4-4.0); Lymphocytes % 7.8 % (21.3-54.2); Monocytes # 0.6 10*3/uL (0.11-0.8); Monocytes % 5.8 % (1.7-12.7); Neutrophils % 84.6 % (38.7-73.9); Platelet Count 319 T/CUMM (130-400); Red Blood Count 4.43 MC/CUMM (3.8-5.5); Red Cell Distribution Width 14.9 % (9.3-17.3); White Blood Count 10.7 T/CUMM (4-12)
[2022-01-01 04:20] LABS: INR 1.1
[2022-01-01 04:38] LABS: Albumin 2.4 G/DL (3.4-5.0); Bilirubin,Total 0.6 MG/DL (0.20-1.00); Calcium 8.5 MG/DL (8.5-10.1); Osmolality,Calculated 285.3 MOS/KG (273-304); Potassium 3.1 MMOL/L (3.5-5.1); Total Protein 5.9 G/DL (6.4-8.2)
[2022-01-01] MEDS ORDERED: POTASSIUM CHLORIDE 20 MEQ TABLET PO STA (04:45)
[2022-01-01 04:56] LABS: Lymphocytes 9 % (20-55); Total Cells Counted 100
[2022-01-01 04:57] LABS: Platelet Estimate Normal
[2022-01-01] MEDS ORDERED: amLODIPine 5 MG TABLET PO PRN (07:03)
[2022-01-01] MEDS ORDERED: ACETAMINOPHEN 325 MG TABLET PO PRN (07:03)
[2022-01-01] MEDS ORDERED: MORPHINE 2 MG/1 ML SYRINGE IV PRN (07:03)
[2022-01-01] MEDS ORDERED: ONDANSETRON 4 MG/2 ML VIAL IV PRN (07:03)
[2022-01-01] MEDS ORDERED: GLUCAGON 1 MG VIAL IM PRN (07:03)
[2022-01-01] MEDS ORDERED: MAGNESIUM HYDROXIDE SUSP 30 ML UDCUP PO PRN (07:03)
[2022-01-01] MEDS: SODIUM CHLORIDE 0.9% 1,000 ML IV SCH ×2 (07:15→21:53)
[2022-01-01] MEDS ORDERED: DEXTROSE 10% 250 ML BAG IV PRN (07:16)
[2022-01-01] MEDS: ALBUTEROL/IPRATROPIUM 3 ML NEB RESP TX SCH ×5 (07:20→23:55)
[2022-01-01] MEDS: INSULIN REGULAR 100 UNIT/ML SUBCUT SCH ×3 (07:40→18:21)
[2022-01-01] MEDS: metFORMIN 500 MG TABLET PO SCH ×2 (11:06→17:17)
[2022-01-01] MEDS: CHOLECALCIFEROL 1,000 UNIT TABLET PO SCH ×2 (11:20→21:54)
[2022-01-01] MEDS: ENOXAPARIN 40 MG/0.4 ML SYRINGE SUBCUT SCH (11:20)
[2022-01-01] MEDS: AMIODARONE 200 MG TABLET PO SCH (11:20)
[2022-01-01] MEDS: METOPROLOL TARTRATE 25 MG TABLET PO SCH ×2 (11:20→21:53)
[2022-01-01] MEDS: ASCORBIC ACID 500 MG TABLET PO SCH ×2 (11:20→21:54)
[2022-01-01] MEDS: GABAPENTIN 400 MG CAPSULE PO SCH ×3 (11:20→21:53)
[2022-01-01] MEDS: DOCUSATE SODIUM 100 MG CAPSULE PO SCH ×2 (11:20→21:53)
[2022-01-01] MEDS: ASPIRIN 325 MG TABLET PO SCH (12:15)
[2022-01-01] MEDS: ACETAMINOPHEN 325 MG TABLET PO PRN (12:24)
[2022-01-01] MEDS: PIPERACILLIN/TAZOBACTAM 3,375 MG in SODIUM CHLORIDE 0.9% 100 ML IV SCH ×2 (12:55→21:54)
[2022-01-01] MEDS: ATORVASTATIN 80 MG TABLET PO SCH (21:53)
[2022-01-01] MEDS: PANTOPRAZOLE 40 MG TABLET PO SCH (21:54)
[2022-01-02] MEDS: ACETAMINOPHEN 325 MG TABLET PO PRN (00:08)
[2022-01-02] MEDS: INSULIN REGULAR 100 UNIT/ML SUBCUT SCH ×5 (03:05→21:53)
[2022-01-02] MEDS: SODIUM CHLORIDE 0.9% 1,000 ML IV SCH ×2 (03:09→15:10)
[2022-01-02] MEDS: ALBUTEROL/IPRATROPIUM 3 ML NEB RESP TX SCH ×4 (03:35→15:15)
[2022-01-02] MEDS: PIPERACILLIN/TAZOBACTAM 3,375 MG in SODIUM CHLORIDE 0.9% 100 ML IV SCH ×3 (05:53→21:34)
[2022-01-02 06:11] LABS: Albumin 1.9 G/DL (3.4-5.0); Bilirubin,Total 0.6 MG/DL (0.20-1.00); Calcium 8.3 MG/DL (8.5-10.1); Osmolality,Calculated 294.4 MOS/KG (273-304); Potassium 3.2 MMOL/L (3.5-5.1); Total Protein 5.8 G/DL (6.4-8.2)
[2022-01-02] MEDS: metFORMIN 500 MG TABLET PO SCH ×2 (09:02→17:24)
[2022-01-02] MEDS: METOPROLOL TARTRATE 25 MG TABLET PO SCH ×2 (09:03→21:18)
[2022-01-02] MEDS: GABAPENTIN 400 MG CAPSULE PO SCH ×3 (09:04→21:18)
[2022-01-02] MEDS: ASCORBIC ACID 500 MG TABLET PO SCH ×2 (09:04→21:18)
[2022-01-02] MEDS: DOCUSATE SODIUM 100 MG CAPSULE PO SCH ×2 (09:04→21:18)
[2022-01-02] MEDS: AMIODARONE 200 MG TABLET PO SCH (09:05)
[2022-01-02] MEDS: CHOLECALCIFEROL 1,000 UNIT TABLET PO SCH ×2 (09:05→21:18)
[2022-01-02] MEDS: ENOXAPARIN 40 MG/0.4 ML SYRINGE SUBCUT SCH (09:07)
[2022-01-02] MEDS ORDERED: POTASSIUM CHLORIDE 20 MEQ TABLET PO ONE (12:00)
[2022-01-02] MEDS: ASPIRIN 325 MG TABLET PO SCH (12:12)
[2022-01-02] MEDS: PANTOPRAZOLE 40 MG TABLET PO SCH (21:18)
[2022-01-02] MEDS: ATORVASTATIN 80 MG TABLET PO SCH (21:18)
[2022-01-03] MEDS: PIPERACILLIN/TAZOBACTAM 3,375 MG in SODIUM CHLORIDE 0.9% 100 ML IV SCH ×3 (05:36→22:21)
[2022-01-03] MEDS: SODIUM CHLORIDE 0.9% 1,000 ML IV SCH (06:10)
[2022-01-03] MEDS: ALBUTEROL/IPRATROPIUM 3 ML NEB RESP TX SCH ×5 (07:22→21:00)
[2022-01-03] MEDS: INSULIN REGULAR 100 UNIT/ML SUBCUT SCH ×4 (08:18→22:31)
[2022-01-03] MEDS ORDERED: POTASSIUM CHLORIDE 20 MEQ TABLET PO ONE (09:42)
[2022-01-03] MEDS: DEXTROMETHORPHAN ER 6 MG/ML 90 ML/BOTTLE PO SCH ×2 (10:24→22:18)
[2022-01-03] MEDS: metFORMIN 500 MG TABLET PO SCH ×2 (10:25→17:32)
[2022-01-03] MEDS: CHOLECALCIFEROL 1,000 UNIT TABLET PO SCH ×2 (10:25→22:18)
[2022-01-03] MEDS: GABAPENTIN 400 MG CAPSULE PO SCH ×3 (10:26→22:19)
[2022-01-03] MEDS: AMIODARONE 200 MG TABLET PO SCH (10:26)
[2022-01-03] MEDS: ACETAMINOPHEN 325 MG TABLET PO PRN (10:26)
[2022-01-03] MEDS: DOCUSATE SODIUM 100 MG CAPSULE PO SCH ×2 (10:26→22:19)
[2022-01-03] MEDS: METOPROLOL TARTRATE 25 MG TABLET PO SCH ×2 (10:26→22:19)
[2022-01-03] MEDS: ENOXAPARIN 40 MG/0.4 ML SYRINGE SUBCUT SCH (10:27)
[2022-01-03] MEDS: ASCORBIC ACID 500 MG TABLET PO SCH ×2 (10:27→22:19)
[2022-01-03] MEDS: ASPIRIN 325 MG TABLET PO SCH (12:27)
[2022-01-03] MEDS: ATORVASTATIN 80 MG TABLET PO SCH (22:19)
[2022-01-03] MEDS: PANTOPRAZOLE 40 MG TABLET PO SCH (22:19)
[2022-01-04] MEDS: ALBUTEROL/IPRATROPIUM 3 ML NEB RESP TX SCH ×7 (00:24→22:26)
[2022-01-04] MEDS: PIPERACILLIN/TAZOBACTAM 3,375 MG in SODIUM CHLORIDE 0.9% 100 ML IV SCH ×3 (04:49→22:45)
[2022-01-04 05:57] LABS: Basophils # 0.1 10*3/uL (0.0-0.2); Basophils % 0.7 % (0.0-0.8); Eosinophils # 0.1 10*3/uL (0.0-0.87); Eosinophils % 1.9 % (0.00-10.9); Hematocrit 37.6 VOL% (35.7-47.0); Hemoglobin 12.3 GM/DL (12.0-16.0); Immature Granulocytes % 5.5 %; Immature Granulocytes Absolute 0.38 #; Lymphocytes # 1.1 10*3/uL (1.4-4.0); Lymphocytes % 15.3 % (21.3-54.2); Mean Corpuscular HGB Conc 32.7 GM/DL (32-36); Mean Corpuscular Volume 92.6 FL (87-102); Mean Platelet Volume 9.5 FL (9.6-12.0); Monocytes # 0.4 10*3/uL (0.11-0.8); Monocytes % 5.3 % (1.7-12.7); NRBC # 0.02 10*3/uL; Neutrophils % 71.3 % (38.7-73.9); Platelet Count 408 T/CUMM (130-400); Red Blood Count 4.06 MC/CUMM (3.8-5.5); Red Cell Distribution Width 15.9 % (9.3-17.3)
[2022-01-04 06:26] LABS: Calcium 8.5 MG/DL (8.5-10.1); Osmolality,Calculated 288.7 MOS/KG (273-304); Potassium 3.5 MMOL/L (3.5-5.1)
[2022-01-04 06:47] LABS: Band Neutrophils 2 % (0-10); Lymphocytes 12 % (20-55); Metamyelocytes 1 %; Myelocytes 1 %; Total Cells Counted 100
[2022-01-04 06:48] LABS: Hypochromia Slight; Microcytosis Slight; Ovalocytes Slight
[2022-01-04] MEDS: metFORMIN 500 MG TABLET PO SCH ×2 (09:32→16:04)
[2022-01-04] MEDS: DEXTROMETHORPHAN ER 6 MG/ML 90 ML/BOTTLE PO SCH ×2 (09:32→22:47)
[2022-01-04] MEDS: GABAPENTIN 400 MG CAPSULE PO SCH ×3 (09:32→22:48)
[2022-01-04] MEDS: CHOLECALCIFEROL 1,000 UNIT TABLET PO SCH ×2 (09:33→22:56)
[2022-01-04] MEDS: ACETAMINOPHEN 325 MG TABLET PO PRN (09:33)
[2022-01-04] MEDS: AZITHROMYCIN 250 MG TABLET PO SCH (09:33)
[2022-01-04] MEDS: ASCORBIC ACID 500 MG TABLET PO SCH ×2 (09:33→22:56)
[2022-01-04] MEDS: METOPROLOL TARTRATE 25 MG TABLET PO SCH ×2 (09:34→22:50)
[2022-01-04] MEDS: ENOXAPARIN 40 MG/0.4 ML SYRINGE SUBCUT SCH (09:34)
[2022-01-04] MEDS: INSULIN REGULAR 100 UNIT/ML SUBCUT SCH ×4 (09:34→22:55)
[2022-01-04] MEDS: AMIODARONE 200 MG TABLET PO SCH (09:34)
[2022-01-04] MEDS: DOCUSATE SODIUM 100 MG CAPSULE PO SCH ×2 (09:36→22:46)
[2022-01-04] MEDS: SODIUM CHLORIDE 0.9% 1,000 ML IV SCH (13:04)
[2022-01-04] MEDS: ASPIRIN 325 MG TABLET PO SCH (13:04)
[2022-01-04] MEDS: ACETYLCYSTEINE 20% 800 MG/4 ML VIAL RESP TX SCH ×2 (14:13→22:26)
[2022-01-04] MEDS ORDERED: LOPERAMIDE 2 MG CAPSULE PO PRN (14:45)
[2022-01-04] MEDS: PANTOPRAZOLE 40 MG TABLET PO SCH (22:48)
[2022-01-04] MEDS: ATORVASTATIN 80 MG TABLET PO SCH (22:49)
[2022-01-05] MEDS: ALBUTEROL/IPRATROPIUM 3 ML NEB RESP TX SCH (02:05)
[2022-01-05] MEDS: SODIUM CHLORIDE 0.9% 1,000 ML IV SCH ×2 (02:37→08:54)
[2022-01-05] MEDS: PIPERACILLIN/TAZOBACTAM 3,375 MG in SODIUM CHLORIDE 0.9% 100 ML IV SCH (05:04)
[2022-01-05] MEDS: INSULIN REGULAR 100 UNIT/ML SUBCUT SCH (07:57)
[2022-01-05] MEDS: ASCORBIC ACID 500 MG TABLET PO SCH (08:50)
[2022-01-05] MEDS: GABAPENTIN 400 MG CAPSULE PO SCH (08:51)
[2022-01-05] MEDS: AZITHROMYCIN 250 MG TABLET PO SCH (08:51)
[2022-01-05] MEDS: CHOLECALCIFEROL 1,000 UNIT TABLET PO SCH (08:51)
[2022-01-05] MEDS: METOPROLOL TARTRATE 25 MG TABLET PO SCH (08:51)
[2022-01-05] MEDS: DOCUSATE SODIUM 100 MG CAPSULE PO SCH (08:51)
[2022-01-05] MEDS: metFORMIN 500 MG TABLET PO SCH (08:52)
[2022-01-05] MEDS: AMIODARONE 200 MG TABLET PO SCH (08:52)
[2022-01-05] MEDS: ENOXAPARIN 40 MG/0.4 ML SYRINGE SUBCUT SCH (08:53)
[2022-01-05] MEDS: DEXTROMETHORPHAN ER 6 MG/ML 90 ML/BOTTLE PO SCH (08:53)
[2022-01-05 09:49] VITALS: BP 127/63
== END 2022-01-05 11:49 | disposition home or self-care (01) | DRG 195 ==
LOC: N.ED 03:25 → N.EDINP 03:25 → N.5E 16:37
PROVIDERS: ADMIT Family Medicine; ATTEND Family Medicine